=== PATIENT | male | born 1965 | race Caucasian/White ===

== ENCOUNTER 2018-07-27 10:14 | Outpatient (CLI) | payer OTHER ==
[2018-07-27 12:31] LABS: BASOPHILS # (AUTO) 0.1 10^3/uL (0.0-0.1); BASOPHILS % (AUTO) 0.5 %; EOSINOPHILS # (AUTO) 0.1 10^3/uL (0.0-0.7); EOSINOPHILS % (AUTO) 1.1 %; HGB - HEMOGLOBIN 15.1 g/dL (14.0-18.0); LYMPHOCYTES # (AUTO) 2.3 10^3/uL (1.5-3.5); LYMPHOCYTES % (AUTO) 19.2 %; MEAN CORPUSCULAR HEMOGLOBIN 34.1 pg (27.0-31.0); MEAN CORPUSCULAR HGB CONC 33.9 g/dL (32.0-36.0); MEAN CORPUSCULAR VOLUME 100.6 fL (80.0-94.0); MEAN PLATELET VOLUME 8.9 fL (7.4-11.4); MONOCYTES % (AUTO) 8.6 %; NEUTROPHILS # (AUTO) 8.3 10^3/uL (1.5-6.6); NEUTROPHILS % (AUTO) 70.6 %; PLT - PLATELET COUNT 254 10^3/uL (130-450); RED BLOOD COUNT 4.44 10^6/uL (4.70-6.10); RED CELL DISTRIBUTION WIDTH 13.3 % (12.0-15.0); WHITE BLOOD COUNT 11.8 x10^3/uL (4.8-10.8)
[2018-07-27 12:47] LABS: ALBUMIN 4.3 g/dL (3.2-5.5); ALBUMIN/GLOBULIN RATIO 1.3 (1.0-2.2); ALKALINE PHOSPHATASE 48 IU/L (42-121); ALT ALANINE AMINOTRANSFERASE 19 IU/L (10-60); AST ASPARTATE AMINOTRANSFERASE 31 IU/L (10-42); BILIRUBIN,TOTAL 0.8 mg/dL (0.2-1.0); BUN - BLOOD UREA NITROGEN 13 mg/dL (6-20); CALCIUM 9.5 mg/dL (8.5-10.3); CARBON DIOXIDE - CO2 28 mmol/L (21-32); CHLORIDE 100 mmol/L (101-111); CHOL/HDL RATIO 2.4 (<5.0); CHOLESTEROL 262 mg/dL; CREATININE 0.9 mg/dL (0.6-1.2); GFR - MDRD 88 (>89); GLUCOSE 110 mg/dL (70-100); HDL CHOLESTEROL 107 mg/dL; LDL CHOLESTEROL,CALCULATED 138 mg/dL; LDL/HDL RATIO 1.3 (<3.6); SODIUM 139 mmol/L (135-145); TOTAL PROTEIN 7.6 g/dL (6.7-8.2); VLDL CHOLESTEROL 17 mg/dL
== END 2018-07-27 23:59 | disposition home or self-care (01) ==
LOC: LAB.N 10:14
PROVIDERS: ATTEND Family Medicine
DX: Z00.00 Encounter for general adult medical examination without abnormal findings (principal); F17.210 Nicotine dependence, cigarettes, uncomplicated
CPT/HCPCS: 36415; 80053; 80061; 83721; 85025

== ENCOUNTER 2019-09-01 09:07 | Outpatient (CLI) | payer OTHER ==
--- NOTE | 2019-09-02 17:48 | XRAY Report ---
Reason: NECK AND BACK PAIN Procedure Date: 09/01/2019 Accession Number: [id number] / [id number] Procedure: XRN - Cervical Spine 2 View CPT Code: Final Report FULL RESULT: EXAM: CERVICAL SPINE RADIOGRAPHY EXAM DATE: 09/01/2019 10:05 AM. CLINICAL HISTORY: NECK AND BACK PAIN. COMPARISONS: None. TECHNIQUE: 3 views. FINDINGS: Alignment: Normal. No spondylolisthesis or scoliosis. Bones: The cervical vertebral bodies and posterior elements are well visualized from the skull base through C7-T1. No fractures or bone lesions. Disks: Normal. Disk heights are maintained. Facets: No degenerative disease. Soft Tissues: Normal. No prevertebral soft tissue swelling. The visualized lung apices are clear. IMPRESSION: Normal cervical spine radiography. [facility]
--- NOTE | 2019-09-02 17:49 | XRAY Report ---
Reason: NECK AND BACK PAIN Procedure Date: 09/01/2019 Accession Number: [id number] / [id number] Procedure: XRN - Lumbar Spine 2 View CPT Code: Final Report FULL RESULT: EXAM: LUMBOSACRAL SPINE RADIOGRAPHY EXAM DATE: 09/01/2019 10:05 AM. CLINICAL HISTORY: NECK AND BACK PAIN. COMPARISONS: THORACIC SPINE 3 VIEW 09/01/2019 9:39 AM. TECHNIQUE: 3 views. FINDINGS: Alignment: Normal. No spondylolisthesis or scoliosis. Bones: There are hypoplastic ribs at the L1 level. No fractures or bone lesions. Disks: There is minimal anterior marginal osteophyte formation. Disk heights are maintained. Facets: No degenerative changes. Sacroiliac Joints: Unremarkable. Soft Tissues: Normal. The visualized bowel gas pattern is normal. IMPRESSION: Negative lumbar spine radiography. [facility]
--- NOTE | 2019-09-02 17:50 | XRAY Report ---
Reason: NECK AND BACK PAIN Procedure Date: 09/01/2019 Accession Number: [id number] / [id number] Procedure: XRN - Thoracic Spine 3 View CPT Code: Final Report FULL RESULT: EXAM: THORACIC SPINE RADIOGRAPHY EXAM DATE: 09/01/2019 10:05 AM. CLINICAL HISTORY: NECK AND BACK PAIN. COMPARISON: None. TECHNIQUE: 2 views. FINDINGS: Alignment: Normal. No spondylolisthesis or scoliosis. Bones: No fractures or bone lesions. Disks: Normal. Disk heights are maintained. Soft Tissues: Normal. The visualized lungs and cardiomediastinal silhouette are normal. IMPRESSION: Negative thoracic spine radiography. [facility]
--- NOTE | 2019-09-02 17:52 | XRAY Report ---
Reason: NECK AND BACK PAIN Procedure Date: 09/01/2019 Accession Number: [id number] / [id number] Procedure: XRN - Shoulder 3 View BILAT CPT Code: Final Report FULL RESULT: Bilateral Shoulder Radiography EXAM DATE: 09/01/2019 10:05 AM. CLINICAL HISTORY: NECK AND BACK PAIN. COMPARISON: THORACIC SPINE 3 VIEW 09/01/2019 9:39 AM. TECHNIQUE: 3 views each. FINDINGS: Right: Bones: Normal. No fracture or bone lesion. Joints: The glenohumeral and acromioclavicular joints are normal. Soft tissues: The visualized hemithorax is unremarkable. No soft tissue swelling. Left: Bones: Normal. No fracture or bone lesion. Joints: The glenohumeral and acromioclavicular joints are normal. Soft tissues: The visualized hemithorax is unremarkable. No soft tissue swelling. IMPRESSION: Normal bilateral shoulder radiography. [facility]
== END 2019-09-01 09:08 | disposition home or self-care (01) ==
LOC: DI.N 09:07
PROVIDERS: ATTEND Family Medicine
DX: M54.2 Cervicalgia (principal); M25.511 Pain in right shoulder; M25.512 Pain in left shoulder
CPT/HCPCS: 72040; 72072; 72100

== ENCOUNTER 2019-12-23 18:16 | Outpatient (CLI) | payer OTHER | END 2019-12-23 18:17 | disposition home or self-care (01) | LOC: COV 18:16 | PROVIDERS: ATTEND Family Medicine | DX: R05 Cough (principal) ==

== ENCOUNTER 2020-07-19 10:10 | Outpatient (CLI) | payer OTHER ==
--- NOTE | 2020-07-19 10:31 | XRAY Report ---
PROCEDURE: Lumbar Spine Complete INDICATIONS: LUMBAR BACK PAIN TECHNIQUE: 4 views of the lumbar spine were acquired. COMPARISON: 09/01/2019 lumbosacral spine plain films. FINDINGS: Bones: 5 [id number] vertebrae are present. There is normal bony alignment. No vertebral body compression fractures. No suspicious bony lesions. Slight anterior degenerative disc disease is see n at L3-4. No subluxation found. Soft tissues: Overlying bowel gas pattern is normal. No suspicious soft tissue calcifications. IMPRESSION: Mild L3-4 degenerative disc disease, anteriorly. No sign of fracture or subluxation. A d efinite source of new lumbosacral spine plain film is not found. Reviewed by: Dickson Lo MD on 07/19/2020 10:30 AM PDT Approved by: Dickson Lo MD on 07/19/2020 10:30 AM PDT Station ID: [id number]
== END 2020-07-19 23:59 | disposition home or self-care (01) ==
LOC: DI.WCP 10:10
PROVIDERS: ATTEND Family Medicine
DX: M51.36 Other intervertebral disc degeneration, lumbar region (principal)
CPT/HCPCS: 72110

== ENCOUNTER 2020-07-31 07:37 | Outpatient (CLI) | payer OTHER ==
--- NOTE | 2020-07-31 09:46 | MRI Report ---
PROCEDURE: Cervical Spine W/O INDICATIONS: NECK AND BACK PAIN TECHNIQUE: Noncontrast sagittal T1 spin echo and T2 fast spin echo, sagittal STIR, foraminal oblique sagittal T2 fast spin echo, and axial gradient echo or T2 fast spin echo through the cervical spine. COMPARISON: None. FINDINGS: Image quality: Excellent. Alignment and Curvature: There is loss of normal cervical lordosis. Alignment is otherwise normal. Bone Marrow: Marrow demonstrates normal overall signal. Minimal reactive signal within the endplate s adjacent to the C2-C3, C3-C4, C4-C5, and C5-C6 intervertebral discs. Spinal Cord: Visualized spinal cord has normal size and signal. No cerebellar tonsillar herniation. Paraspinous Soft Tissues: No paravertebral masses. Prevertebral soft tissues are normal in thicknes s. C2-C3: Normal in appearance. C3-C4: Mild disc desiccation. Mild facet and uncovertebral hypertrophy bilaterally. No canal stenos is. Mild bilateral foraminal stenosis. C4-C5: Mild disc desiccation. Mild diffuse disc bulge. Mild facet and uncovertebral hypertrophy bila terally. Mild canal stenosis. Mild bilateral foraminal stenosis. C5-C6: Mild disc desiccation and diffuse disc bulge. Mild diffuse disc bulge with superimposed small left posterolateral protrusion. Mild facet and uncovertebral hypertrophy bilaterally. Mild canal fe nosis. Moderate left and mild right foraminal stenosis. C6-C7: Mild disc desiccation and diffuse disc bulge. Mild facet and uncovertebral hypertrophy bilate rally. Mild canal stenosis. Mild bilateral foraminal stenosis. C7-T1: Normal in appearance. IMPRESSION: 1. Multilevel degenerative disc and facet disease, as well as uncovertebral hypertrophy. 2. Mild multilevel canal stenoses. 3. Multilevel foraminal stenoses, worst on the left at C5-C6 where there is moderate foraminal stenos is. Reviewed by: John Gallegos MD on 07/31/2020 9:45 AM PST Approved by: John Gallegos MD on 07/31/2020 9:45 AM PST Station ID: [id number]
--- NOTE | 2020-07-31 09:51 | MRI Report ---
PROCEDURE: Shoulder RT W/O INDICATIONS: NECK AND BACK PAIN TECHNIQUE: Noncontrast oblique coronal T2 fast spin echo with fat saturation, oblique sagittal T1 spin echo and T2 fast spin echo with fat saturation, axial T1 spin echo and T2 fast spin echo with fat saturation t hrough the shoulder. COMPARISON: Plain films dated 09.01.19 FINDINGS: Image quality: Excellent. Rotator cuff: Mild T2 signal elevation within the anterior, mid, and posterior supraspinatus tendon, as well as the anterior per spinatus tendon at the humeral insertion site, indicating tendinopathy. T here is low-grade partial thickness articular surface tearing of the anterior, mid, and posterior sup raspinatus tendon at the humeral insertion site. There is a low-grade intrasubstance tear of the post erior infraspinatus tendon at the musculotendinous junction. There is mild T2 signal elevation throug hout the subscapularis at the humeral insertion site, indicating tendinopathy, without tear. Teres mi nor is intact. No rotator cuff atrophy is present. Bones and bursae: No bone marrow contusions or fractures. Mild acromioclavicular joint degeneration. The acromion demonstrates conventional anatomy, without an os acromiale. No pathologic subacromial /subdeltoid bursal fluid is present. Capsule and soft tissues: In the absence of intra-articular contrast, the labrum and glenohumeral li gaments appear intact. The long head of the biceps tendon demonstrates normal location and moderate thinning. The rotator interval appears normal, without fibrosis. The coracohumeral ligament is libia l in thickness. IMPRESSION: 1. Supraspinatus and infraspinatus tendinopathy, with superimposed low-grade partial thickness intras ubstance tears. No full-thickness rotator cuff tear. 2. Subscapularis tendinopathy without tear. 3. Mild acromioclavicular joint osteoarthritis. 4. Thinning of the biceps tendon, consistent with chronic partial thickness tearing. Reviewed by: John Gallegos MD on 07/31/2020 9:49 AM PST Approved by: John Gallegos MD on 07/31/2020 9:49 AM PST Station ID: [id number]
--- NOTE | 2020-07-31 13:38 | MRI Report ---
PROCEDURE: Shoulder LT W/O INDICATIONS: NECK AND BACK PAIN TECHNIQUE: Noncontrast oblique coronal T2 fast spin echo with fat saturation, oblique sagittal T1 spin echo and T2 fast spin echo with fat saturation, axial T1 spin echo and T2 fast spin echo with fat saturation t hrough the shoulder. COMPARISON: Plain films of the left shoulder dated 09.01.19 FINDINGS: Image quality: Partially degraded by motion artifact. Rotator cuff: Mild T2 signal elevation within the anterior supraspinatus tendon at the humeral inser tion site. The supraspinatus, infraspinatus, and subscapularis tendons appear intact throughout. No rotator cuff muscle atrophy on sagittal images. Bones and bursae: No bone marrow contusions or fractures. Moderate acromioclavicular joint degenerat ion. The acromion demonstrates conventional anatomy, without an os acromiale. No pathologic subacro mial/subdeltoid bursal fluid is present. Capsule and soft tissues: There is moderate T2 signal elevation within the posterior superior aspect of the glenoid labrum. The long head of the biceps tendon demonstrates normal location and morphology , but is not well seen secondary to motion artifact. The rotator interval appears normal, without fi brosis. The coracohumeral ligament is normal in thickness. IMPRESSION: 1. Supraspinatus tendinopathy. No rotator cuff tear. 2. Acromioclavicular joint osteoarthritis. 3. Findings suggestive of posterior superior glenoid labral tear. Reviewed by: John Gallegos MD on 07/31/2020 1:37 PM PST Approved by: John Gallegos MD on 07/31/2020 1:37 PM PST Station ID: [id number]
== END 2020-07-31 07:38 | disposition home or self-care (01) ==
LOC: DI 07:37
PROVIDERS: ATTEND Family Medicine
DX: M47.812 Spondylosis without myelopathy or radiculopathy, cervical region (principal); M50.31 Other cervical disc degeneration, high cervical region; M48.02 Spinal stenosis, cervical region; M50.222 Other cervical disc displacement at C5-C6 level; S46.021A Laceration of muscle(s) and tendon(s) of the rotator cuff of right shoulder, initial encounter; S46.221A Laceration of muscle, fascia and tendon of other parts of biceps, right arm, initial encounter; M19.011 Primary osteoarthritis, right shoulder; M75.92 Shoulder lesion, unspecified, left shoulder; M19.012 Primary osteoarthritis, left shoulder
CPT/HCPCS: 72141

== ENCOUNTER 2021-01-01 10:56 | Outpatient (CLI) | payer OTHER ==
[2021-01-01 19:06] LABS: BUN - BLOOD UREA NITROGEN 10 mg/dL (6-20); CALCIUM 9.5 mg/dL (8.5-10.3); CARBON DIOXIDE - CO2 27 mmol/L (21-32); CHLORIDE 102 mmol/L (101-111); CHOL/HDL RATIO 3.9 (<5.0); CHOLESTEROL 305 mg/dL; GFR - MDRD 77 (>89); GLUCOSE 111 mg/dL (70-100); HDL CHOLESTEROL 78 mg/dL; LDL CHOLESTEROL,CALCULATED 203 mg/dL; LDL/HDL RATIO 2.6 (<3.6); POTASSIUM 3.8 mmol/L (3.5-5.0); SODIUM 138 mmol/L (135-145); TRIGLYCERIDES 121 mg/dL; URIC ACID 6.2 mg/dL (2.6-7.2); VLDL CHOLESTEROL 24 mg/dL
[2021-01-01 19:16] LABS: THYROID STIMULATING HORMONE 2.73 uIU/mL (0.34-5.60)
[2021-01-01 20:24] LABS: ESTIMATED AVERAGE GLUCOSE 111 mg/dL (70-100); HEMOGLOBIN A1c% 5.5 % (4.27-6.07)
== END 2021-01-01 10:57 | disposition home or self-care (01) ==
LOC: LAB.N 10:56
PROVIDERS: ATTEND Internal Medicine
DX: I10 Essential (primary) hypertension (principal); Z83.3 Family history of diabetes mellitus; Z12.5 Encounter for screening for malignant neoplasm of prostate; M25.50 Pain in unspecified joint
CPT/HCPCS: 36415; 80048; 80061; 83036; 83721; 84153; 84443; 84550

== ENCOUNTER 2021-02-02 13:47 | Outpatient (CLI) | payer OTHER | END 2021-02-02 13:48 | disposition home or self-care (01) | LOC: COV 13:47 | PROVIDERS: ATTEND Surgery | DX: Z01.812 Encounter for preprocedural laboratory examination (principal); R13.10 Dysphagia, unspecified; Z12.11 Encounter for screening for malignant neoplasm of colon; Z20.822 Contact with and (suspected) exposure to COVID-19 ==

== ENCOUNTER 2021-02-05 07:48 | Day surgery (SDC) | payer OTHER ==
--- OUTSIDE RECORDS SUMMARY | 2021-02-05 07:52 | EXTERNAL MEDICAL SUMMARY RPT | Continuity of Care Document ---
:1965 Demographics Phone Unavailable Preferred Language Eritrean Marital Status Unknown Sikhism Affiliation Unknown Race Unknown Ethnic Group Unknown Author Organization [place] Address [address] [phone] Phone Care Team Providers Name Role Phone *Temp Unavailable Unavailable Medications date description facility 20201128 Hydrochlorothiazide 12.5 MG Oral Tablet [facility] 20201128 Omeprazole 40 MG Enteric Coated Capsule [facility] Procedures date description facility 20201128 [facility] Vital Signs date measurement value source 20201128 weight_standard 174.98 lb 20201128 weight_metric 79.37 kg 20201128 temperature_standard 97.8 F 20201128 temperature_metric 36.56 C 20201128 respiration_rate 23 /min 20201128 height_standard 72 in 20201128 height_metric 182.88 cm 20201128 heart_rate 84 /min 20201128 BP_systolic 158 mm[Hg] 20201128 BP_diastolic 89 mm[Hg] 20201128 BMI 23.7 kg/m2
[2021-02-05] MEDS ORDERED: LIDO GARGLE 30 ML BOTTLE ONE (08:08)
[2021-02-05] MEDS ORDERED: BENZOCAINE/TETRACAINE/BUTAMBEN 20 GM ONE (08:09)
[2021-02-05] MEDS ORDERED: LACTATED RINGERS 1,000 ML IV ONE (08:15)
[2021-02-05] MEDS ORDERED: fentaNYL 250 MCG/5 ML VIAL ONE (08:25)
[2021-02-05] MEDS ORDERED: MIDAZOLAM 2 MG/2 ML VIAL ONE ×3 (08:25→09:05)
--- NOTE | 2021-02-05 08:30 | HISTORY & PHYSICAL EXAMINATION ---
Chief Complaint - Chief Complaint Chief Complaint: trouble swallowing History of Present Illness - History Obtained From Records Reviewed: yes Exam Limitations: pt - History of Present Illness HPI Comment/Other: History trouble swallowing. Much improved to resolved with prilosec. No prior colon cancer screening History - Past Medical History Cardiovascular: reports: Hypertension Endocrine/Autoimmune: reports: None GI: reports: GERD : reports: None HEENT: reports: None Psych: reports: None Musculoskeletal: reports: Osteoarthritis, Chronic back pain Derm: reports: None MRSA Hx?: No Meds/Allgy - Home Medications Home Medications: Ambulatory Orders Medication Instructions Recorded Confirmed Baclofen [Lioresal Intrathecal] 20 mg PO DAILY 02/05/21 02/05/21 Hydrochlorothiazide 12.5 mg PO DAILY 02/05/21 02/05/21 Omeprazole 40 mg PO DAILY 02/05/21 02/05/21 - Allergies Allergies/Adverse Reactions: Allergies Allergy/AdvReac Type Severity Reaction Status Date / Time No Known Drug Allergies Allergy Verified 02/05/21 08:23 Review of Systems - Other Findings Other Findings: 10 pt ros as above otherwise unremarkable Exam - Vital Signs Reviewed Vital Signs: Yes Vital Signs: Vital Signs x48h Temp Pulse Resp BP Pulse Ox 02/05/21 08:04 36.4 C L 85 18 165/96 H 98 - Physical Exam General Appearance: positive: No acute distress, Alert Eyes Bilateral: positive: PERRL, EOMI Neck: positive: No JVD Respiratory: positive: No respiratory distress, Breath sounds nml Cardiovascular: positive: Regular rate & rhythm Abdomen: positive: Non-tender, No distention Neurologic/Psychiatric: positive: Oriented x3 Conclusion/Plan - Problem List (1) Colon cancer screening Conclusion/Plan: History dysphagia. Plan EGD and colonoscopy. parq held and consent obtained
[2021-02-05] MEDS ORDERED: LIDO GARGLE 30 ML BOTTLE PO ONE (08:42)
[2021-02-05] MEDS ORDERED: BENZOCAINE/TETRACAINE/BUTAMBEN 20 GM TOP ONE (08:42)
[2021-02-05] MEDS ORDERED: LACTATED RINGERS 100 ML IV ONE (09:31)
[2021-02-05 09:44] VITALS: BP 111/66
== END 2021-02-05 07:49 | disposition home or self-care (01) ==
LOC: SDS 07:48
PROVIDERS: ATTEND Surgery
PROC: 0DB38ZX Excision of Lower Esophagus, Via Natural or Artificial Opening Endoscopic, Diagnostic (ICD-10-PCS; 2021-02-05)
PROC: 0DB78ZX Excision of Stomach, Pylorus, Via Natural or Artificial Opening Endoscopic, Diagnostic (ICD-10-PCS; 2021-02-05)
PROC: 0DBP8ZX Excision of Rectum, Via Natural or Artificial Opening Endoscopic, Diagnostic (ICD-10-PCS; principal; 2021-02-05 08:30)
PROC: 0DBN8ZX Excision of Sigmoid Colon, Via Natural or Artificial Opening Endoscopic, Diagnostic (ICD-10-PCS; 2021-02-05 08:30)
DX: Z12.11 Encounter for screening for malignant neoplasm of colon (principal); R13.10 Dysphagia, unspecified; R10.13 Epigastric pain; D12.8 Benign neoplasm of rectum; K64.8 Other hemorrhoids
CPT/HCPCS: 43239; 45380; A9270; J3010; J7120